=== PATIENT | male | born 1960 | race Caucasian/White ===

== ENCOUNTER → 2016-11-09 | Outpatient (REF) | payer OTHER ==
[2016-11-09 12:17] LABS: MEAN CORPUSCULAR HGB CONC 33.9 g/dl (32.0-36.5); MEAN CORPUSCULAR VOLUME 91.7 fl (80.0-96.0); RED CELL DISTRIBUTION WIDTH 13.3 % (11.5-14.5); WHITE BLOOD COUNT 7.5 K/mm3 (4.0-10.0)
[2016-11-09 12:54] LABS: ALBUMIN 3.7 GM/DL (3.2-5.2); ALBUMIN/GLOBULIN RATIO 1.37 (1.00-1.93); ALKALINE PHOSPHATASE 105 U/L (45-117); ALT/SGPT 96 U/L (12-78); ANION GAP 5 MEQ/L (8-16); AST/SGOT 51 U/L (15-37); BLOOD UREA NITROGEN 14 MG/DL (7-18); CALCIUM LEVEL 8.7 MG/DL (8.5-10.1); CARBON DIOXIDE LEVEL 30 MEQ/L (21-32); CHLORIDE LEVEL 107 MEQ/L (98-107); CHOLESTEROL LEVEL 207 MG/DL (<200); CREATININE FOR GFR 0.84 MG/DL (0.70-1.30); GLOMERULAR FILTRATION RATE > 60.0 (>56); GLUCOSE, FASTING 92 MG/DL (70-105); POTASSIUM SERUM 4.7 MEQ/L (3.5-5.1); SODIUM LEVEL 142 MEQ/L (136-145); TOTAL PROTEIN 6.4 GM/DL (6.4-8.2); TRIGLYCERIDES LEVEL 87 MG/DL (<150)
== END ==
LOC: M LABDRAW1 11:37
PROVIDERS: ATTEND Family Medicine
DX: I10 Essential (primary) hypertension (principal); R53.83 Other fatigue

== ENCOUNTER → 2018-05-14 | Outpatient (CLI) | payer MEDICARE, OTHER ==
--- NOTE | 2018-05-14 13:34 | REP ---
Clinical: Lower back pain. Technique: AP, lateral, bilateral oblique, and coned-down views of the lumbosacral spine. Findings: Alignment and lordosis maintained. Moderate multilevel degenerative changes include endplate sclerosis, marginal spurring, minimal disc space narrowing and hypertrophic facet changes. Findings are most pronounced at L4-5 and L5-S1. No acute fracture / compression injury or subluxation. Impression: Moderate multilevel degenerative changes. Electronically Signed by Oc Alberts MD 05/14/2018 01:25 P
== END ==
LOC: M WUC 13:09
PROVIDERS: ATTEND Physician Assistant
DX: M51.36 Other intervertebral disc degeneration, lumbar region (principal); M51.37 Other intervertebral disc degeneration, lumbosacral region

== ENCOUNTER → 2018-05-28 | Outpatient (CLI) | payer MEDICARE, OTHER ==
--- NOTE | 2018-05-28 14:42 | REP ---
Chest two views HISTORY: Bronchitis Comparison: 07/18/2012 The lungs are clear. The heart is normal in size. The pulmonary vasculature is normal in appearance. Degenerative change is present in the shoulders and thoracic spine. IMPRESSION: No acute disease. Electronically Signed by Cipriano Hanson MD 05/28/2018 02:34 P
== END ==
LOC: M WUC 14:10
PROVIDERS: ATTEND Physician Assistant
DX: J20.9 Acute bronchitis, unspecified (principal); Z72.0 Tobacco use

== ENCOUNTER → 2021-01-11 | Outpatient (CLI) | payer MEDICARE, BC, OTHER ==
--- NOTE | 2021-01-11 13:09 | REP ---
INDICATION: PSORIASIS VULGARIS. COMPARISON: PA and lateral chest, 05/28/2018. TECHNIQUE: Upright PA and lateral chest images were obtained. FINDINGS: There is stable linear scarring in the lingula. The lungs are otherwise clear. There is cardiomegaly and aortic ectasia consistent with benign essential hypertension. IMPRESSION: 1. Stable lingular scarring. 2. Findings consistent with hypertension. 3. No evidence of acute cardiopulmonary pathology. <Electronically signed by Gonzales Atkins > 01/11/21 [id number]
[2021-01-11 13:11] LABS: BASO # 0.1 10^3/uL (0.0-0.2); BASO % 1.2 % (0.0-1.0); EOS # 0.2 10^3/uL (0.0-0.5); EOS % 2.1 % (0.0-3.0); HEMOGLOBIN 16.8 g/dl (13.5-17.5); LYMPH # 1.4 10^3/uL (1.5-5.0); LYMPH % 16.7 % (24.0-44.0); MEAN CORPUSCULAR HGB CONC 34.3 g/dl (32.0-36.5); MEAN CORPUSCULAR VOLUME 96.3 fl (80.0-96.0); MONO # 0.8 10^3/uL (0.0-0.8); MONO % 10.4 % (2.0-8.0); NEUTROPHILS # 5.6 10^3/uL (1.5-8.5); NEUTROPHILS % 69.1 % (36.0-66.0); PLATELET COUNT, AUTOMATED 342 10^3/uL (150-450); RED BLOOD COUNT 5.09 10^6/uL (4.30-6.10); WHITE BLOOD COUNT 8.1 10^3/uL (4.0-10.0)
[2021-01-11 15:04] LABS: ALBUMIN 3.4 GM/DL (3.2-5.2); ALT/SGPT 34 U/L (12-78); BILIRUBIN,DIRECT 0.2 MG/DL (0.0-0.2); BILIRUBIN,TOTAL 0.8 MG/DL (0.2-1.0); BLOOD UREA NITROGEN 11 MG/DL (7-18); CALCIUM LEVEL 9.4 MG/DL (8.8-10.2); CARBON DIOXIDE LEVEL 27 MEQ/L (21-32); CHLORIDE LEVEL 107 MEQ/L (98-107); CREATININE FOR GFR 0.95 MG/DL (0.70-1.30); GLOMERULAR FILTRATION RATE > 60.0 (>49); GLUCOSE, FASTING 121 MG/DL (70-100); PHOSPHORUS LEVEL 3.1 MG/DL (2.5-4.9); POTASSIUM SERUM 4.4 MEQ/L (3.5-5.1); SODIUM LEVEL 139 MEQ/L (136-145); TOTAL PROTEIN 6.6 GM/DL (6.4-8.2)
[2021-01-11 15:14] LABS: HEPATITIS B SURFACE ANTIBODY NEGATIVE (POSITIVE)
[2021-01-11 15:53] LABS: HIV 1&2 SCREEN CENTAUR NEGATIVE (NEGATIVE)
== END ==
LOC: M PLAIMG 09:47 → M PLALAB 09:47
DX: L40.0 Psoriasis vulgaris (principal)

== ENCOUNTER 2021-11-09 06:13 | Emergency (ER) | payer MEDICARE, BC, OTHER ==
[~2021-11-09] VITALS: Ht 177.8 cm; Wt 100.0 kg
[2021-11-09] MEDS ORDERED: COMBIVENT RESPIMAT 100-20MCG INHALER 4GM INH STA (07:23)
[2021-11-09] MEDS ORDERED: methylPREDNISolone 125MG 2ML VIAL IM ONE (07:30)
[2021-11-09 07:34] VITALS: O2SAT 93
[2021-11-09] MEDS ORDERED: ALBU2.5V10 NEB (08:15)
[2021-11-09] MEDS ORDERED: PRED20TA PO (08:15)
[2021-11-09] MEDS ORDERED: PROAAER10 INH (08:15)
[2021-11-09 08:23] VITALS: BP 132/81
== END 2021-11-09 08:24 | disposition home or self-care (01) ==
LOC: M ED 06:13
DX: U07.1 COVID-19 (principal); R50.9 Fever, unspecified; J45.909 Unspecified asthma, uncomplicated; Z88.0 Allergy status to penicillin; F17.200 Nicotine dependence, unspecified, uncomplicated
CPT/HCPCS: 71046; 96372; 99284; J2930

== ENCOUNTER → 2022-01-13 | Outpatient (CLI) | payer MEDICARE, BC, OTHER ==
[~2022-01-13] MED LIST: ALBU2.5V10 NEB; PRED20TA PO; PROAAER10 INH
== END ==
LOC: M RAD 06:20
PROVIDERS: ATTEND Nurse Practitioner Family
DX: Z12.2 Encounter for screening for malignant neoplasm of respiratory organs (principal); Z87.891 Personal history of nicotine dependence; L40.0 Psoriasis vulgaris

== ENCOUNTER → 2022-01-13 | Outpatient (CLI) | payer MEDICARE, BC, OTHER ==
[2022-01-13 07:24] LABS: BASO # 0.1 10^3/uL (0.0-0.2); EOS # 0.2 10^3/uL (0.0-0.5); EOS % 2.4 % (0.0-3.0); HEMATOCRIT 45.1 % (42.0-52.0); LYMPH # 1.3 10^3/uL (1.5-5.0); LYMPH % 18.9 % (24.0-44.0); MEAN CORPUSCULAR HEMOGLOBIN 32.8 pg (27.0-33.0); MEAN CORPUSCULAR HGB CONC 33.3 g/dl (32.0-36.5); MEAN CORPUSCULAR VOLUME 98.5 fl (80.0-96.0); MONO # 1.3 10^3/uL (0.0-0.8); MONO % 19.6 % (2.0-8.0); NEUTROPHILS # 3.9 10^3/uL (1.5-8.5); NEUTROPHILS % 57.8 % (36.0-66.0); PLATELET COUNT, AUTOMATED 175 10^3/uL (150-450); RED BLOOD COUNT 4.58 10^6/uL (4.30-6.10); WHITE BLOOD COUNT 6.7 10^3/uL (4.0-10.0)
[2022-01-13 08:05] LABS: ALBUMIN 3.6 GM/DL (3.2-5.2); ALT/SGPT 45 U/L (12-78); BILIRUBIN,DIRECT 0.2 MG/DL (0.0-0.2); BILIRUBIN,TOTAL 0.7 MG/DL (0.2-1.0); BLOOD UREA NITROGEN 9 MG/DL (7-18); CALCIUM LEVEL 9.3 MG/DL (8.8-10.2); CARBON DIOXIDE LEVEL 31 MEQ/L (21-32); CHLORIDE LEVEL 101 MEQ/L (98-107); CREATININE FOR GFR 0.84 MG/DL (0.70-1.30); GLOMERULAR FILTRATION RATE > 60.0 (>49); GLUCOSE, FASTING 118 MG/DL (70-100); PHOSPHORUS LEVEL 2.8 MG/DL (2.5-4.9); POTASSIUM SERUM 3.7 MEQ/L (3.5-5.1); SODIUM LEVEL 136 MEQ/L (136-145); TOTAL PROTEIN 7.2 GM/DL (6.4-8.2)
[2022-01-13 08:46] LABS: HEPATITIS B SURFACE ANTIBODY NEGATIVE (POSITIVE)
[2022-01-13 09:28] LABS: HIV 1&2 SCREEN CENTAUR NEGATIVE (NEGATIVE)
== END ==
LOC: M LAB 06:26
PROVIDERS: ATTEND Nurse Practitioner Family
DX: L40.0 Psoriasis vulgaris (principal)

== ENCOUNTER 2023-06-12 13:33 | Emergency (ER) | payer MEDICARE, BC, OTHER ==
[~2023-06-12] VITALS: Ht 177.8 cm; Wt 104.2 kg
[2023-06-12 14:17] LABS: BASO # 0.1 10^3/uL (0.0-0.2); BASO % 1.8 % (0.0-1.0); EOS # 0.1 10^3/uL (0.0-0.5); EOS % 1.4 % (0.0-3.0); HEMATOCRIT 53.5 % (42.0-52.0); HEMOGLOBIN 18.6 g/dl (13.5-17.5); LYMPH % 35.1 % (24.0-44.0); MEAN CORPUSCULAR HEMOGLOBIN 32.8 pg (27.0-33.0); MEAN CORPUSCULAR HGB CONC 34.8 g/dl (32.0-36.5); MEAN CORPUSCULAR VOLUME 94.4 fl (80.0-96.0); MONO # 0.4 10^3/uL (0.0-0.8); MONO % 7.7 % (2.0-8.0); NEUTROPHILS % 53.6 % (36.0-66.0); PLATELET COUNT, AUTOMATED 212 10^3/uL (150-450); RED BLOOD COUNT 5.67 10^6/uL (4.30-6.10); WHITE BLOOD COUNT 5.6 10^3/uL (4.0-10.0)
[2023-06-12 14:39] LABS: ALBUMIN 3.8 G/DL (3.2-5.2); ALKALINE PHOSPHATASE 148 U/L (46-116); ALT/SGPT 72 U/L (7.0-40); AST/SGOT 158 U/L (<34); BILIRUBIN,DIRECT 0.3 MG/DL (<0.4); BILIRUBIN,TOTAL 0.7 MG/DL (0.3-1.2); BLOOD UREA NITROGEN 7 MG/DL (9-23); CALCIUM LEVEL 8.8 MG/DL (8.3-10.6); CARBON DIOXIDE LEVEL 23 MMOL/L (20-31); CHLORIDE LEVEL 105 MMOL/L (98-107); CREATININE FOR GFR 0.76 MG/DL (0.70-1.30); GLOMERULAR FILTRATION RATE > 60.0 (>49); GLUCOSE, FASTING 97 MG/DL (74-106); POTASSIUM SERUM 4.3 MMOL/L (3.5-5.1); SODIUM LEVEL 137 MMOL/L (136-145); TOTAL PROTEIN 7.1 G/DL (5.7-8.2)
[2023-06-12] MEDS ORDERED: ALBU2.5V10 NEB (15:26)
[2023-06-12 15:30] VITALS: BP 112/53
[2023-06-12 15:33] VITALS: O2SAT 91
[2023-06-12 15:40] VITALS: TEMP 96.1
== END 2023-06-12 15:35 | disposition home or self-care (01) ==
LOC: M ED 13:33 → EDBD 13:33 → M ED 15:35
DX: J44.1 Chronic obstructive pulmonary disease with (acute) exacerbation (principal); F10.10 Alcohol abuse, uncomplicated; Z79.52 Long term (current) use of systemic steroids; Z88.0 Allergy status to penicillin

== ENCOUNTER 2024-01-16 23:29 | Inpatient (IN) | payer MEDICARE, BC ==
[~2024-01-16] VITALS: Ht 172.7 cm; Wt 87.5 kg
[2024-01-17] VITALS (8 sets, daily range): BP systolic 115–132; BP diastolic 66–93; TEMP 97.3–97.9; O2SAT 93–98
[2024-01-17 00:36] LABS: VENOUS HCO3 21.3 MMOL/L (23.0-27.0); VENOUS O2 SATURATION 57.6 % (60.0-80.0); VENOUS PARTIAL PRESSURE CO2 32.9 mmHg (38.0-50.0); VENOUS PARTIAL PRESSURE O2 30.1 mmHg (30.0-50.0); VENOUS PH 7.429 UNITS (7.330-7.430); VENOUS STANDARD HCO3 21.8 MMOL/L; VENOUS TOTAL CO2 22.3 MMOL/L (24.0-28.0)
[2024-01-17 00:50] LABS: BASO # 0.1 10^3/uL (0.0-0.2); BASO % 0.6 % (0.0-1.0); EOS # 0.1 10^3/uL (0.0-0.5); EOS % 0.3 % (0.0-3.0); HEMATOCRIT 45.7 % (42.0-52.0); LYMPH # 1.4 10^3/uL (1.5-5.0); LYMPH % 9.5 % (24.0-44.0); MEAN CORPUSCULAR HEMOGLOBIN 33.5 pg (27.0-33.0); MEAN CORPUSCULAR VOLUME 95.6 fl (80.0-96.0); MONO % 6.7 % (2.0-8.0); NEUTROPHILS # 12.1 10^3/uL (1.5-8.5); NEUTROPHILS % 82.4 % (36.0-66.0); PLATELET COUNT, AUTOMATED 212 10^3/uL (150-450); RED BLOOD COUNT 4.78 10^6/uL (4.30-6.10); WHITE BLOOD COUNT 14.7 10^3/uL (4.0-10.0)
[2024-01-17 01:04] LABS: ETHYL ALCOHOL (ETHANOL) < 0.003 % (0.000-0.010)
[2024-01-17 01:05] LABS: CPK CREATINE PHOSPHOKINASE 17 U/L (46-171); SALICYLATE LEVEL < 3.0 MG/DL (<30)
[2024-01-17 01:06] LABS: ALBUMIN 3.1 G/DL (3.2-5.2); ALKALINE PHOSPHATASE 182 U/L (40-129); ALT/SGPT 40 U/L (7.0-40); AST/SGOT 45 U/L (<34); BILIRUBIN,DIRECT 0.8 MG/DL (<0.4); BLOOD UREA NITROGEN 39 MG/DL (9-23); CALCIUM LEVEL 9.9 MG/DL (8.3-10.6); CARBON DIOXIDE LEVEL 22 MMOL/L (20-31); CHLORIDE LEVEL 107 MMOL/L (98-107); CK-MB VALUE MASS < 1.0 NG/ML (<3.6); CREATININE FOR GFR 0.88 MG/DL (0.70-1.30); GLOMERULAR FILTRATION RATE > 60.0 (>49); GLUCOSE, FASTING 132 MG/DL (74-106); KETONE, URINE AUTO RFX 1+ mg/dL (NEGATIVE); LEUKOCYTE ESTERASE UR AUTO RFX NEGATIVE (NEGATIVE); MB/CK RELATIVE INDEX 5.88 (< OR =4); MUCUS, URINE RFX SMALL (NEGATIVE); NITRITE, URINE AUTO RFX NEGATIVE (NEGATIVE); POTASSIUM SERUM 4.1 MMOL/L (3.5-5.1); RBC, URINE AUTO RFX 0 /HPF (0-3); SODIUM LEVEL 142 MMOL/L (136-145); SQUAM EPITHELIAL CELL UR AURFX 0 /HPF (0-6); TOTAL PROTEIN 7.5 G/DL (5.7-8.2); WBC, URINE AUTO RFX 1 /HPF (0-3)
[2024-01-17 01:09] LABS: THYROID STIMULATING HORMONE 8.264 uIU/ML (0.55-4.78)
[2024-01-17 01:26] LABS: AMPHETAMINES LEVEL URINE NEGATIVE (NEGATIVE); BARBITURATES URINE NEGATIVE (NEGATIVE); BENZODIAZEPINES URINE NEGATIVE (NEGATIVE); COCAINE METABOLITE URINE NEGATIVE (NEGATIVE)
[2024-01-17 01:27] LABS: CANNABINOIDS URINE POSITIVE (NEGATIVE); METHADONE URINE NEGATIVE (NEGATIVE); OPIATES URINE NEGATIVE (NEGATIVE); PHENCYCLIDINE URINE NEGATIVE (NEGATIVE)
[2024-01-17] MEDS: NS (Normal Saline) 0.9% 1,000 ML IV ONE ×2 (01:52)
[2024-01-17 03:35] LABS: FREE T4 0.89 NG/DL (0.89-1.76)
[2024-01-17] MEDS ORDERED: VENTAER INH (04:08)
[2024-01-17] MEDS ORDERED: ALBU2.5V10 INH (04:08)
[2024-01-17] MEDS ORDERED: FAMO20TA PO (04:08)
[2024-01-17] MEDS ORDERED: PEPT262C2 PO (04:08)
[2024-01-17] MEDS ORDERED: HOME MED LIST COMPLETE! XX SCH (04:10)
[2024-01-17] MEDS ORDERED: ISOVUE-370 76% 100ML VIAL As Ordered ONE (04:24)
[2024-01-17] MEDS: THIAMINE 100 MG TAB PO SCH (05:02)
[2024-01-17] MEDS: CEFEPIME HCL 2 GM in DEXTROSE 5% (D5W) ADV/MINI-BAG 50 ML IV SCH (06:26)
[2024-01-17] MEDS: LACTULOSE 20GM/30ML SYRUP UDC PO SCH (06:26)
[2024-01-17 07:51] LABS: BASO # 0.1 10^3/uL (0.0-0.2); BASO % 0.7 % (0.0-1.0); EOS # 0.1 10^3/uL (0.0-0.5); EOS % 0.6 % (0.0-3.0); HEMATOCRIT 42.9 % (42.0-52.0); HEMOGLOBIN 14.1 g/dl (13.5-17.5); LYMPH # 1.2 10^3/uL (1.5-5.0); LYMPH % 11.1 % (24.0-44.0); MEAN CORPUSCULAR HGB CONC 32.9 g/dl (32.0-36.5); MEAN CORPUSCULAR VOLUME 103.4 fl (80.0-96.0); MONO # 0.8 10^3/uL (0.0-0.8); MONO % 7.7 % (2.0-8.0); NEUTROPHILS # 8.4 10^3/uL (1.5-8.5); NEUTROPHILS % 79.4 % (36.0-66.0); PLATELET COUNT, AUTOMATED 131 10^3/uL (150-450); RED BLOOD COUNT 4.15 10^6/uL (4.30-6.10); WHITE BLOOD COUNT 10.5 10^3/uL (4.0-10.0)
[2024-01-17] MEDS: metroNIDAZOLE 500 MG in IV 1 EA IV SCH (08:04)
[2024-01-17 08:09] LABS: INR 1.15; PARTIAL THROMBOPLASTIN TIME 30.8 SECONDS (24.8-34.2); PROTHROMBIN TIME 15.1 SECONDS (12.5-14.5)
[2024-01-17 08:18] LABS: ALBUMIN 2.6 G/DL (3.2-5.2); ALKALINE PHOSPHATASE 137 U/L (40-129); ALT/SGPT 34 U/L (7.0-40); AST/SGOT 38 U/L (<34); BILIRUBIN,DIRECT 0.6 MG/DL (<0.4); BILIRUBIN,TOTAL 1.4 MG/DL (0.3-1.2); BLOOD UREA NITROGEN 35 MG/DL (9-23); CALCIUM LEVEL 8.9 MG/DL (8.3-10.6); CARBON DIOXIDE LEVEL 20 MMOL/L (20-31); CHLORIDE LEVEL 113 MMOL/L (98-107); CREATININE FOR GFR 0.77 MG/DL (0.70-1.30); GLOMERULAR FILTRATION RATE > 60.0 (>49); GLUCOSE, FASTING 115 MG/DL (74-106); MAGNESIUM LEVEL 2.5 MG/DL (1.8-2.4); POTASSIUM SERUM 3.8 MMOL/L (3.5-5.1); SODIUM LEVEL 146 MMOL/L (136-145); TOTAL PROTEIN 6.1 G/DL (5.7-8.2)
[2024-01-17] MEDS ORDERED: HEPARIN SOD (PORCINE) 5000UNITS/ML 1ML VIAL/SYRINGE SC SCH (09:00)
[2024-01-17] MEDS ORDERED: ALBUTEROL 90 MCG/ACT 8GM HFA INHALER INH PRN (09:05)
[2024-01-17] MEDS ORDERED: FAMOTIDINE 20 MG TAB PO PRN (09:05)
[2024-01-17] MEDS: LORazepam 2 MG TAB PO PRN (09:54)
[2024-01-17] MEDS: FOLIC ACID 1MG TAB PO SCH (12:00)
[2024-01-17] MEDS: MULTIVITAMINS/MINERALS THERAP 1 TAB PO SCH (12:00)
[2024-01-17] MEDS: NICOTINE 21MG/24HR 1 EA TRANSDERMAL TD SCH (12:27)
[2024-01-17] MEDS: D5W/0.45% SODIUM CHLORIDE 1,000 ML IV SCH (12:36)
[2024-01-17 12:38] LABS: BLOOD UREA NITROGEN 34 MG/DL (9-23); CALCIUM LEVEL 8.8 MG/DL (8.3-10.6); CARBON DIOXIDE LEVEL 19 MMOL/L (20-31); CHLORIDE LEVEL 113 MMOL/L (98-107); CREATININE FOR GFR 0.73 MG/DL (0.70-1.30); GLOMERULAR FILTRATION RATE > 60.0 (>49); GLUCOSE, FASTING 109 MG/DL (74-106); POTASSIUM SERUM 3.8 MMOL/L (3.5-5.1); SODIUM LEVEL 143 MMOL/L (136-145)
[2024-01-17] MEDS: IPRATROPIUM 0.5MG/ALBUTEROL 2.5MG INH SOL UD 3ML (DUONEB) NEB SCH (13:07)
[2024-01-17] MEDS: THIAMINE INJection 500 MG in NS 100 ML IV SCH (13:11)
[2024-01-17 14:23] LABS: ACETONE/KETONE 2.16 MMOL/L (0.02-0.27)
[2024-01-17] MEDS ORDERED: ISOVUE-M 300 61% 15ML VIAL As Ordered ONE (14:56)
[2024-01-17 15:32] LABS: APPEARANCE, CSF CLEAR (CLEAR); COLOR, CSF COLORLESS (COLORLESS); CSF TUBE# CELL CNT TUBE 1
[2024-01-17 15:48] LABS: HEMOGLOBIN A1c 5.4 % (4.0-6.0)
[2024-01-17 17:12] LABS: THYROID PEROXIDASE ANTIBODY 39 U/ML (<60.0)
[2024-01-17 17:42] LABS: CSF TUBE# TP TUBE 2; TOTAL PROTEIN,CSF 97.4 MG/DL (15-45)
[2024-01-17 17:44] LABS: CSF TUBE# GLU TUBE 2
[2024-01-17 18:36] LABS: VITAMIN B12 LEVEL > 2000 PG/ML (211-911)
[2024-01-18] VITALS (9 sets, daily range): BP systolic 100–135; BP diastolic 70–94; TEMP 96.9–98; O2SAT 88–99
[2024-01-18] MEDS: ACETAMINOPHEN 325 MG TAB PO PRN (03:07)
[2024-01-18] MEDS: OXAZEPAM 10MG CAP PO ONE (04:23)
[2024-01-18 06:12] LABS: BASO # 0.1 10^3/uL (0.0-0.2); BASO % 0.8 % (0.0-1.0); EOS # 0.1 10^3/uL (0.0-0.5); HEMATOCRIT 31.2 % (42.0-52.0); LYMPH % 11.2 % (24.0-44.0); MEAN CORPUSCULAR HEMOGLOBIN 34.3 pg (27.0-33.0); MEAN CORPUSCULAR HGB CONC 35.3 g/dl (32.0-36.5); MEAN CORPUSCULAR VOLUME 97.2 fl (80.0-96.0); MONO # 0.8 10^3/uL (0.0-0.8); MONO % 8.5 % (2.0-8.0); NEUTROPHILS # 7.1 10^3/uL (1.5-8.5); NEUTROPHILS % 77.8 % (36.0-66.0); PLATELET COUNT, AUTOMATED 124 10^3/uL (150-450); RED BLOOD COUNT 3.21 10^6/uL (4.30-6.10); WHITE BLOOD COUNT 9.1 10^3/uL (4.0-10.0)
[2024-01-18 06:41] LABS: ALBUMIN 2.4 G/DL (3.2-5.2); ALKALINE PHOSPHATASE 112 U/L (40-129); ALT/SGPT 27 U/L (7.0-40); AST/SGOT 34 U/L (<34); BILIRUBIN,DIRECT 0.6 MG/DL (<0.4); BILIRUBIN,TOTAL 1.3 MG/DL (0.3-1.2); BLOOD UREA NITROGEN 26 MG/DL (9-23); CALCIUM LEVEL 8.8 MG/DL (8.3-10.6); CARBON DIOXIDE LEVEL 24 MMOL/L (20-31); CHLORIDE LEVEL 116 MMOL/L (98-107); CREATININE FOR GFR 0.77 MG/DL (0.70-1.30); GLOMERULAR FILTRATION RATE > 60.0 (>49); GLUCOSE, FASTING 144 MG/DL (74-106); MAGNESIUM LEVEL 2.3 MG/DL (1.8-2.4); SODIUM LEVEL 147 MMOL/L (136-145)
[2024-01-18 06:42] LABS: TOTAL PROTEIN 5.3 G/DL (5.7-8.2)
[2024-01-18] MEDS: POTASSIUM CHLORIDE 10MEQ SR TABLET PO ONE (08:06)
[2024-01-18] MEDS: KCL 10MEQ IN D5/0.45NS 1000ML 1,000 ML IV SCH (10:52)
[2024-01-18 13:13] LABS: BLOOD UREA NITROGEN 24 MG/DL (9-23); CALCIUM LEVEL 8.8 MG/DL (8.3-10.6); CARBON DIOXIDE LEVEL 19 MMOL/L (20-31); CHLORIDE LEVEL 116 MMOL/L (98-107); CREATININE FOR GFR 0.73 MG/DL (0.70-1.30); GLOMERULAR FILTRATION RATE > 60.0 (>49); GLUCOSE, FASTING 129 MG/DL (74-106); POTASSIUM SERUM 4.1 MMOL/L (3.5-5.1); SODIUM LEVEL 144 MMOL/L (136-145)
[2024-01-18] MEDS: OXAZEPAM 10MG CAP PO SCH (14:00)
[2024-01-18] MEDS ORDERED: OXAZEPAM 15MG CAP PO SCH (14:00)
[2024-01-18] MEDS: ONDANSETRON 4MG 2ML VIAL IV PRN (17:47)
[2024-01-19] VITALS (9 sets, daily range): BP systolic 103–135; BP diastolic 68–84; TEMP 96.6–97.8; O2SAT 94–99
[2024-01-19 06:03] LABS: BASO # 0.1 10^3/uL (0.0-0.2); BASO % 1.3 % (0.0-1.0); EOS # 0.2 10^3/uL (0.0-0.5); EOS % 2.4 % (0.0-3.0); HEMATOCRIT 35.9 % (42.0-52.0); HEMOGLOBIN 12.2 g/dl (13.5-17.5); LYMPH # 0.8 10^3/uL (1.5-5.0); LYMPH % 9.2 % (24.0-44.0); MEAN CORPUSCULAR HEMOGLOBIN 33.2 pg (27.0-33.0); MEAN CORPUSCULAR VOLUME 97.6 fl (80.0-96.0); MONO # 0.7 10^3/uL (0.0-0.8); MONO % 7.3 % (2.0-8.0); NEUTROPHILS # 7.1 10^3/uL (1.5-8.5); PLATELET COUNT, AUTOMATED 151 10^3/uL (150-450); RED BLOOD COUNT 3.68 10^6/uL (4.30-6.10); WHITE BLOOD COUNT 8.9 10^3/uL (4.0-10.0)
[2024-01-19 06:16] LABS: ALBUMIN 2.8 G/DL (3.2-5.2); ALKALINE PHOSPHATASE 142 U/L (40-129); ALT/SGPT 33 U/L (7.0-40); AST/SGOT 41 U/L (<34); BILIRUBIN,DIRECT 0.6 MG/DL (<0.4); BILIRUBIN,TOTAL 1.3 MG/DL (0.3-1.2); BLOOD UREA NITROGEN 16 MG/DL (9-23); CALCIUM LEVEL 9.1 MG/DL (8.3-10.6); CARBON DIOXIDE LEVEL 26 MMOL/L (20-31); CHLORIDE LEVEL 114 MMOL/L (98-107); CREATININE FOR GFR 0.68 MG/DL (0.70-1.30); GLOMERULAR FILTRATION RATE > 60.0 (>49); GLUCOSE, FASTING 104 MG/DL (74-106); MAGNESIUM LEVEL 2.4 MG/DL (1.8-2.4); POTASSIUM SERUM 3.1 MMOL/L (3.5-5.1); SODIUM LEVEL 148 MMOL/L (136-145); TOTAL PROTEIN 6.4 G/DL (5.7-8.2)
[2024-01-19] MEDS ORDERED: KCL 40MEQ IN D5/0.45NS 1000ML 1,000 ML IV SCH (07:15)
[2024-01-19] MEDS: POTASSIUM CHLORIDE 10MEQ SR TABLET PO STA ×2 (07:45→14:03)
[2024-01-19] MEDS: D5W/0.45% SODIUM CHLORIDE 1,000 ML IV SCH (07:47)
[2024-01-19] MEDS: POTASSIUM CHLORIDE 10MEQ SR TABLET PO ONE ×2 (07:47→18:15)
[2024-01-19] MEDS: THIAMINE 100 MG TAB PO SCH (11:21)
[2024-01-19] MEDS: oxyBUTYnin 5 MG TAB PO PRN (11:21)
[2024-01-19 12:53] LABS: BLOOD UREA NITROGEN 13 MG/DL (9-23); CALCIUM LEVEL 9.1 MG/DL (8.3-10.6); CARBON DIOXIDE LEVEL 23 MMOL/L (20-31); CHLORIDE LEVEL 115 MMOL/L (98-107); CREATININE FOR GFR 0.67 MG/DL (0.70-1.30); GLOMERULAR FILTRATION RATE > 60.0 (>49); GLUCOSE, FASTING 134 MG/DL (74-106); POTASSIUM SERUM 3.2 MMOL/L (3.5-5.1); SODIUM LEVEL 150 MMOL/L (136-145)
[2024-01-19] MEDS: PANTOPRAZOLE 40MG TAB (PROTONIX) PO SCH (14:02)
[2024-01-19] MEDS: ARIPiprazole 2 MG TAB PO SCH (14:03)
[2024-01-19] MEDS: D5W 1,000 ML IV SCH (14:03)
[2024-01-19] MEDS: HEPARIN SOD (PORCINE) 5000UNITS/ML 1ML VIAL/SYRINGE SQ SCH (14:04)
[2024-01-19 16:37] LABS: BLOOD UREA NITROGEN 13 MG/DL (9-23); CALCIUM LEVEL 8.7 MG/DL (8.3-10.6); CARBON DIOXIDE LEVEL 23 MMOL/L (20-31); CHLORIDE LEVEL 116 MMOL/L (98-107); CREATININE FOR GFR 0.66 MG/DL (0.70-1.30); GLOMERULAR FILTRATION RATE > 60.0 (>49); GLUCOSE, FASTING 169 MG/DL (74-106); POTASSIUM SERUM 3.5 MMOL/L (3.5-5.1); SODIUM LEVEL 148 MMOL/L (136-145)
[2024-01-19] MEDS: OXAZEPAM 10MG CAP PO SCH (20:04)
[2024-01-19 22:32] LABS: BLOOD UREA NITROGEN 11 MG/DL (9-23); CALCIUM LEVEL 8.4 MG/DL (8.3-10.6); CARBON DIOXIDE LEVEL 25 MMOL/L (20-31); CHLORIDE LEVEL 114 MMOL/L (98-107); CREATININE FOR GFR 0.72 MG/DL (0.70-1.30); GLOMERULAR FILTRATION RATE > 60.0 (>49); GLUCOSE, FASTING 154 MG/DL (74-106); POTASSIUM SERUM 3.6 MMOL/L (3.5-5.1); SODIUM LEVEL 145 MMOL/L (136-145)
[2024-01-20] VITALS (14 sets, daily range): BP systolic 95–136; BP diastolic 68–89; TEMP 96.7–98.6; O2SAT 92–100
[2024-01-20 04:58] LABS: BASO # 0.1 10^3/uL (0.0-0.2); BASO % 0.8 % (0.0-1.0); EOS # 0.2 10^3/uL (0.0-0.5); EOS % 2.4 % (0.0-3.0); HEMATOCRIT 31.3 % (42.0-52.0); LYMPH # 1.1 10^3/uL (1.5-5.0); LYMPH % 14.7 % (24.0-44.0); MEAN CORPUSCULAR HEMOGLOBIN 33.8 pg (27.0-33.0); MEAN CORPUSCULAR HGB CONC 35.1 g/dl (32.0-36.5); MEAN CORPUSCULAR VOLUME 96.3 fl (80.0-96.0); MONO # 0.6 10^3/uL (0.0-0.8); MONO % 8.1 % (2.0-8.0); NEUTROPHILS # 5.4 10^3/uL (1.5-8.5); NEUTROPHILS % 73.2 % (36.0-66.0); PLATELET COUNT, AUTOMATED 142 10^3/uL (150-450); RED BLOOD COUNT 3.25 10^6/uL (4.30-6.10); WHITE BLOOD COUNT 7.4 10^3/uL (4.0-10.0)
[2024-01-20 05:23] LABS: ALBUMIN 2.4 G/DL (3.2-5.2); ALKALINE PHOSPHATASE 116 U/L (40-129); ALT/SGPT 24 U/L (7.0-40); AST/SGOT 24 U/L (<34); BILIRUBIN,DIRECT 0.4 MG/DL (<0.4); BILIRUBIN,TOTAL 0.8 MG/DL (0.3-1.2); BLOOD UREA NITROGEN 9 MG/DL (9-23); CALCIUM LEVEL 9.1 MG/DL (8.3-10.6); CARBON DIOXIDE LEVEL 23 MMOL/L (20-31); CHLORIDE LEVEL 114 MMOL/L (98-107); CREATININE FOR GFR 0.62 MG/DL (0.70-1.30); GLOMERULAR FILTRATION RATE > 60.0 (>49); GLUCOSE, FASTING 140 MG/DL (74-106); MAGNESIUM LEVEL 2.1 MG/DL (1.8-2.4); POTASSIUM SERUM 3.3 MMOL/L (3.5-5.1); SODIUM LEVEL 145 MMOL/L (136-145); TOTAL PROTEIN 5.3 G/DL (5.7-8.2)
[2024-01-20] MEDS: POTASSIUM CHLORIDE 10% LIQ 20MEQ/15ML UDC PO ONE (07:33)
[2024-01-20 15:01] LABS: BLOOD UREA NITROGEN 8 MG/DL (9-23); CALCIUM LEVEL 8.4 MG/DL (8.3-10.6); CARBON DIOXIDE LEVEL 24 MMOL/L (20-31); CHLORIDE LEVEL 115 MMOL/L (98-107); CREATININE FOR GFR 0.63 MG/DL (0.70-1.30); GLOMERULAR FILTRATION RATE > 60.0 (>49); GLUCOSE, FASTING 138 MG/DL (74-106); SODIUM LEVEL 144 MMOL/L (136-145)
[2024-01-21 04:14] VITALS: BP 110/76; TEMP 98.1; O2SAT 95
[2024-01-21 06:40] LABS: BASO # 0.1 10^3/uL (0.0-0.2); BASO % 0.6 % (0.0-1.0); EOS # 0.2 10^3/uL (0.0-0.5); EOS % 2.4 % (0.0-3.0); HEMATOCRIT 30.6 % (42.0-52.0); HEMOGLOBIN 10.7 g/dl (13.5-17.5); LYMPH # 0.9 10^3/uL (1.5-5.0); LYMPH % 10.9 % (24.0-44.0); MEAN CORPUSCULAR HEMOGLOBIN 33.5 pg (27.0-33.0); MEAN CORPUSCULAR VOLUME 95.9 fl (80.0-96.0); MONO # 0.6 10^3/uL (0.0-0.8); MONO % 7.4 % (2.0-8.0); NEUTROPHILS # 6.3 10^3/uL (1.5-8.5); NEUTROPHILS % 77.8 % (36.0-66.0); PLATELET COUNT, AUTOMATED 139 10^3/uL (150-450); RED BLOOD COUNT 3.19 10^6/uL (4.30-6.10); WHITE BLOOD COUNT 8.1 10^3/uL (4.0-10.0)
[2024-01-21 07:17] LABS: ALBUMIN 2.2 G/DL (3.2-5.2); ALKALINE PHOSPHATASE 125 U/L (40-129); ALT/SGPT 21 U/L (7.0-40); AST/SGOT 20 U/L (<34); BILIRUBIN,DIRECT 0.4 MG/DL (<0.4); BILIRUBIN,TOTAL 0.8 MG/DL (0.3-1.2); BLOOD UREA NITROGEN 8 MG/DL (9-23); CALCIUM LEVEL 8.4 MG/DL (8.3-10.6); CARBON DIOXIDE LEVEL 22 MMOL/L (20-31); CHLORIDE LEVEL 109 MMOL/L (98-107); CREATININE FOR GFR 0.71 MG/DL (0.70-1.30); GLOMERULAR FILTRATION RATE > 60.0 (>49); GLUCOSE, FASTING 123 MG/DL (74-106); MAGNESIUM LEVEL 1.8 MG/DL (1.8-2.4); POTASSIUM SERUM 3.7 MMOL/L (3.5-5.1); SODIUM LEVEL 138 MMOL/L (136-145); TOTAL PROTEIN 5.1 G/DL (5.7-8.2)
[2024-01-21 08:00] VITALS: BP 133/90; TEMP 97.5; O2SAT 94
[2024-01-21 11:52] LABS: COPPER PLASMA 102 mcg/dL (70-175)
[2024-01-21 12:00] VITALS: BP 129/88; TEMP 97.9; O2SAT 93
[2024-01-21 16:00] VITALS: BP 106/73; TEMP 97.9; O2SAT 95
[2024-01-21 20:36] VITALS: BP 117/83; TEMP 98.2; O2SAT 96
[2024-01-21 23:31] VITALS: BP 125/90; TEMP 98.2; O2SAT 97
[2024-01-22 03:47] VITALS: BP 126/89; TEMP 97.9; O2SAT 97
[2024-01-22 06:06] LABS: BASO # 0.1 10^3/uL (0.0-0.2); BASO % 0.6 % (0.0-1.0); EOS # 0.2 10^3/uL (0.0-0.5); EOS % 1.8 % (0.0-3.0); HEMATOCRIT 31.6 % (42.0-52.0); HEMOGLOBIN 11.1 g/dl (13.5-17.5); LYMPH # 0.8 10^3/uL (1.5-5.0); LYMPH % 9.8 % (24.0-44.0); MEAN CORPUSCULAR HGB CONC 35.1 g/dl (32.0-36.5); MONO # 0.7 10^3/uL (0.0-0.8); MONO % 8.4 % (2.0-8.0); NEUTROPHILS # 6.5 10^3/uL (1.5-8.5); NEUTROPHILS % 78.7 % (36.0-66.0); PLATELET COUNT, AUTOMATED 154 10^3/uL (150-450); RED BLOOD COUNT 3.36 10^6/uL (4.30-6.10); WHITE BLOOD COUNT 8.3 10^3/uL (4.0-10.0)
[2024-01-22 06:28] LABS: BLOOD UREA NITROGEN 7 MG/DL (9-23); CALCIUM LEVEL 8.1 MG/DL (8.3-10.6); CARBON DIOXIDE LEVEL 23 MMOL/L (20-31); CHLORIDE LEVEL 108 MMOL/L (98-107); CREATININE FOR GFR 0.66 MG/DL (0.70-1.30); GLOMERULAR FILTRATION RATE > 60.0 (>49); GLUCOSE, FASTING 121 MG/DL (74-106); MAGNESIUM LEVEL 1.7 MG/DL (1.8-2.4); POTASSIUM SERUM 3.4 MMOL/L (3.5-5.1); SODIUM LEVEL 140 MMOL/L (136-145)
[2024-01-22] MEDS: POTASSIUM CHLORIDE 10MEQ SR TABLET PO STA (07:42)
[2024-01-22 08:00] VITALS: BP 126/91; TEMP 97.9; O2SAT 94
[2024-01-22] MEDS: MAG SULF 1GM/100ML (MAG RUN) 1 GM in IV 1 EA IV SCH (08:54)
[2024-01-22 12:00] VITALS: BP 125/89; TEMP 98.2; O2SAT 97
[2024-01-22] MEDS: TIOTROPIUM INHALER/CAPSULE (SPIRIVA) INH SCH (14:07)
[2024-01-22 16:00] VITALS: BP 125/87; TEMP 98.1; O2SAT 96
[2024-01-22] MEDS: POTASSIUM CHLORIDE 10MEQ SR TABLET PO ONE (19:36)
[2024-01-22] MEDS: oxyBUTYnin 5 MG TAB PO SCH (20:54)
[2024-01-22] MEDS: OLANZapine INTRAMUSCULAR 10MG VIAL IM PRN (20:55)
[2024-01-23] MEDS: OLANZapine INTRAMUSCULAR 10MG VIAL IM PRN (00:20)
[2024-01-23] MEDS: OXAZEPAM 10MG CAP PO SCH (00:23)
[2024-01-23 04:00] VITALS: BP 103/68; TEMP 97.9; O2SAT 93
[2024-01-23] MEDS ORDERED: OLANZapine INTRAMUSCULAR 10MG VIAL IM PRN (05:50)
[2024-01-23] MEDS ORDERED: LORazepam 2 MG TAB PO PRN (05:55)
[2024-01-23 06:04] VITALS: BP 103/68
[2024-01-23] MEDS: LORazepam 2 MG/ML 1ML VIAL IV PRN (06:21)
[2024-01-23 06:46] LABS: BLOOD UREA NITROGEN 6 MG/DL (9-23); CALCIUM LEVEL 8.7 MG/DL (8.3-10.6); CARBON DIOXIDE LEVEL 26 MMOL/L (20-31); CHLORIDE LEVEL 110 MMOL/L (98-107); CREATININE FOR GFR 0.63 MG/DL (0.70-1.30); GLOMERULAR FILTRATION RATE > 60.0 (>49); GLUCOSE, FASTING 92 MG/DL (74-106); MAGNESIUM LEVEL 2.1 MG/DL (1.8-2.4); SODIUM LEVEL 142 MMOL/L (136-145)
[2024-01-23] MEDS: RAMELTEON 8 MG TAB (ROZEREM) PO PRN (20:16)
[2024-01-24] MEDS: HALOPERIDOL LACTATE 5MG/ML VIAL IV PRN (01:59)
[2024-01-24 05:43] VITALS: BP 120/73; TEMP 97.5; O2SAT 96
[2024-01-24 06:32] LABS: BLOOD UREA NITROGEN 9 MG/DL (9-23); CALCIUM LEVEL 8.5 MG/DL (8.3-10.6); CARBON DIOXIDE LEVEL 25 MMOL/L (20-31); CHLORIDE LEVEL 111 MMOL/L (98-107); CREATININE FOR GFR 0.63 MG/DL (0.70-1.30); GLOMERULAR FILTRATION RATE > 60.0 (>49); GLUCOSE, FASTING 85 MG/DL (74-106); MAGNESIUM LEVEL 2.1 MG/DL (1.8-2.4); POTASSIUM SERUM 4.4 MMOL/L (3.5-5.1); SODIUM LEVEL 143 MMOL/L (136-145)
[2024-01-24 19:49] VITALS: BP 109/69; TEMP 97.7; O2SAT 95
[2024-01-25 03:56] VITALS: BP 110/71; TEMP 98.1; O2SAT 95
[2024-01-25] MEDS: QUEtiapine FUMARATE 25 MG TAB PO PRN (07:41)
[2024-01-26 04:00] VITALS: BP 109/73; TEMP 98.4; O2SAT 96
[2024-01-26] MEDS: OLANZapine 2.5MG TABLET PO PRN (12:38)
[2024-01-26] MEDS: hydrOXYzine 50 MG TAB PO ONE (16:24)
[2024-01-27 01:17] LABS: KETONE, URINE AUTO RFX NEGATIVE (NEGATIVE); MUCUS, URINE RFX SMALL (NEGATIVE); NITRITE, URINE AUTO RFX NEGATIVE (NEGATIVE); RBC, URINE AUTO RFX 22 /HPF (0-3); SQUAM EPITHELIAL CELL UR AURFX 0 /HPF (0-6); YEAST LIKE CELL URINE AUTO RFX SMALL
[2024-01-27 01:24] LABS: LEUKOCYTE ESTERASE UR AUTO RFX 3+ (NEGATIVE); WBC, URINE AUTO RFX 44 /HPF (0-3)
[2024-01-27 04:00] VITALS: BP 112/75; TEMP 97.7; O2SAT 96
[2024-01-27] MEDS: BACTRIM 160MG/800MG DS TAB PO SCH (09:49)
[2024-01-27] MEDS: RIVAROXABAN 10MG TAB (XARELTO) PO SCH (17:18)
[2024-01-28 04:00] VITALS: BP 114/77; TEMP 97.9; O2SAT 96
[2024-01-28] MEDS: NYSTATIN 100,000 UNITS/GM TOPICAL PWD 15GM TOP PRN (08:11)
[2024-01-28] MEDS: PANTOPRAZOLE 40MG TAB (PROTONIX) PO SCH (08:11)
[2024-01-29 04:11] VITALS: BP 113/71; TEMP 97; O2SAT 99
[2024-01-29] MEDS: FLUCONAZOLE 100 MG TAB PO SCH (09:39)
[2024-01-29] MEDS: FLUCONAZOLE 40MG/ML ORAL SUSP 35ML **DRAW UP EXACT DOSE PO SCH (13:12)
[2024-01-29 16:44] LABS: VITAMIN B1 LEVEL WHOLE BLOOD > 1200 nmol/L (78-185)
[2024-01-30 04:19] VITALS: BP 114/79; TEMP 97.9; O2SAT 99
[2024-01-30] MEDS: OLANZapine INTRAMUSCULAR 10MG VIAL IM ONE (07:51)
[2024-01-30 08:06] LABS: HEMATOCRIT 37.8 % (42.0-52.0); HEMOGLOBIN 13.2 g/dl (13.5-17.5); MEAN CORPUSCULAR HEMOGLOBIN 33.2 pg (27.0-33.0); MEAN CORPUSCULAR HGB CONC 34.9 g/dl (32.0-36.5); MEAN CORPUSCULAR VOLUME 95.2 fl (80.0-96.0); PLATELET COUNT, AUTOMATED 330 10^3/uL (150-450); RED BLOOD COUNT 3.97 10^6/uL (4.30-6.10); WHITE BLOOD COUNT 7.8 10^3/uL (4.0-10.0)
[2024-01-30 08:33] LABS: BLOOD UREA NITROGEN 7 MG/DL (9-23); CALCIUM LEVEL 8.7 MG/DL (8.3-10.6); CARBON DIOXIDE LEVEL 25 MMOL/L (20-31); CHLORIDE LEVEL 108 MMOL/L (98-107); CREATININE FOR GFR 0.66 MG/DL (0.70-1.30); GLOMERULAR FILTRATION RATE > 60.0 (>49); GLUCOSE, FASTING 125 MG/DL (74-106); POTASSIUM SERUM 3.9 MMOL/L (3.5-5.1); SODIUM LEVEL 139 MMOL/L (136-145)
[2024-01-30 10:05] LABS: KETONE, URINE AUTO RFX NEGATIVE (NEGATIVE); MUCUS, URINE RFX SMALL (NEGATIVE); NITRITE, URINE AUTO RFX NEGATIVE (NEGATIVE); RBC, URINE AUTO RFX TNTC /HPF (0-3); SQUAM EPITHELIAL CELL UR AURFX 0 /HPF (0-6); URIC ACID CRYSTALS RFX MODERATE; YEAST LIKE CELL URINE AUTO RFX MODERATE
[2024-01-30 10:06] LABS: LEUKOCYTE ESTERASE UR AUTO RFX 3+ (NEGATIVE); WBC, URINE AUTO RFX 139 /HPF (0-3)
[2024-01-31 03:55] VITALS: BP 107/66; TEMP 97.9; O2SAT 93
[2024-02-01 03:52] VITALS: BP 134/89; TEMP 97.5; O2SAT 98
[2024-02-01 19:36] VITALS: BP 136/96; TEMP 97.7
[2024-02-02 04:00] VITALS: BP 168/101; TEMP 97.7; O2SAT 98
[2024-02-02 18:11] VITALS: BP 125/78
[2024-02-02] MEDS: OLANZapine 2.5MG TABLET PO SCH (19:56)
[2024-02-02] MEDS: TAMSULOSIN 0.4 MG CAP PO SCH (19:58)
[2024-02-03 04:00] VITALS: BP 121/76; TEMP 97.9; O2SAT 92
[2024-02-03] MEDS: FLUCONAZOLE 100 MG TAB PO SCH (08:18)
[2024-02-04 03:25] VITALS: BP 118/75; TEMP 97.7; O2SAT 95
[2024-02-04] MEDS: OLANZapine ORAL DISINTEGRATING TAB 5MG PO PRN (03:28)
[2024-02-04] MEDS: CLOTRIMAZOLE 1% TOPICAL CREAM 30GM TOP SCH (05:36)
[2024-02-05] MEDS: HALOPERIDOL LACTATE 5MG/ML VIAL IM ONE (01:02)
[2024-02-05 04:40] VITALS: BP 117/81; TEMP 97.9; O2SAT 92
[2024-02-05] MEDS: FINASTERIDE 5MG TAB PO SCH (08:42)
[2024-02-06 04:26] VITALS: BP 136/88; TEMP 97.5; O2SAT 96
[2024-02-07 04:02] VITALS: BP 119/71; TEMP 98.1; O2SAT 92
[2024-02-08 04:13] VITALS: BP 142/86; TEMP 98.1; O2SAT 93
[2024-02-08] MEDS: MAALOX 30 ML SUSP *UDC PO PRN (14:40)
[2024-02-09 06:23] VITALS: BP 107/70; TEMP 97.7; O2SAT 97
[2024-02-10 04:12] VITALS: BP 131/93; TEMP 97.9; O2SAT 93
[2024-02-11 03:54] VITALS: BP 110/73; TEMP 97.9; O2SAT 92
[2024-02-12 03:53] VITALS: BP 110/74; TEMP 98.1; O2SAT 95
[2024-02-13 04:35] VITALS: BP 115/75; TEMP 97.5; O2SAT 95
[2024-02-14 04:42] VITALS: BP 132/92; TEMP 97.7; O2SAT 94
[2024-02-15 04:01] VITALS: BP 132/91; TEMP 98.6; O2SAT 95
[2024-02-16 04:00] VITALS: BP 101/66; TEMP 98.1; O2SAT 97
[2024-02-17 04:00] VITALS: BP 142/85; TEMP 97.9; O2SAT 96
[2024-02-17] MEDS: diphenhydrAMINE 25MG CAP PO PRN (16:46)
[2024-02-17] MEDS: HYDROCORTISONE 1% CREAM 30GM TOP SCH (16:47)
[2024-02-18 03:50] VITALS: BP 96/64; TEMP 97.7; O2SAT 95
[2024-02-20 04:25] VITALS: BP 116/82; TEMP 98.4; O2SAT 96
[2024-02-21 04:01] VITALS: BP 119/81; TEMP 97.5; O2SAT 95
[2024-02-22 04:00] VITALS: BP 121/78; TEMP 97.9
[2024-02-23 04:00] VITALS: BP 112/76; TEMP 97.3; O2SAT 96
[2024-02-24 04:00] VITALS: BP 105/60; TEMP 97.5; O2SAT 96
[2024-02-24] MEDS: VANICREAM MOISTURIZING SKIN CREAM 113GM TUBE TOP SCH (13:20)
[2024-02-25 04:00] VITALS: BP 110/63; TEMP 97.9; O2SAT 96
[2024-02-26 01:44] VITALS: BP 124/79; TEMP 97.7; O2SAT 93
[2024-02-26 02:14] LABS: VENOUS BASE EXCESS 0.6 (-2.0-2.0); VENOUS HCO3 23.6 MMOL/L (23.0-27.0); VENOUS O2 SATURATION 95.9 % (60.0-80.0); VENOUS PARTIAL PRESSURE CO2 32.9 mmHg (38.0-50.0); VENOUS PARTIAL PRESSURE O2 80.8 mmHg (30.0-50.0); VENOUS PH 7.474 UNITS (7.330-7.430); VENOUS TOTAL CO2 24.6 MMOL/L (24.0-28.0)
[2024-02-26 02:28] LABS: BASO # 0.1 10^3/uL (0.0-0.2); BASO % 0.9 % (0.0-1.0); EOS # 0.3 10^3/uL (0.0-0.5); HEMOGLOBIN 11.9 g/dl (13.5-17.5); LYMPH % 28.7 % (24.0-44.0); MEAN CORPUSCULAR HEMOGLOBIN 32.2 pg (27.0-33.0); MEAN CORPUSCULAR VOLUME 94.6 fl (80.0-96.0); MONO # 0.8 10^3/uL (0.0-0.8); MONO % 11.1 % (2.0-8.0); NEUTROPHILS # 3.7 10^3/uL (1.5-8.5); NEUTROPHILS % 54.7 % (36.0-66.0); PLATELET COUNT, AUTOMATED 214 10^3/uL (150-450); WHITE BLOOD COUNT 6.8 10^3/uL (4.0-10.0)
[2024-02-26 02:49] LABS: ALBUMIN 2.5 G/DL (3.2-5.2); ALKALINE PHOSPHATASE 111 U/L (40-129); ALT/SGPT 13 U/L (7.0-40); AST/SGOT 20 U/L (<34); BILIRUBIN,TOTAL 0.6 MG/DL (0.3-1.2); BLOOD UREA NITROGEN 13 MG/DL (9-23); CALCIUM LEVEL 9.3 MG/DL (8.3-10.6); CARBON DIOXIDE LEVEL 26 MMOL/L (20-31); CHLORIDE LEVEL 107 MMOL/L (98-107); CK-MB VALUE MASS < 1.0 NG/ML (<3.6); CREATININE FOR GFR 0.65 MG/DL (0.70-1.30); GLOMERULAR FILTRATION RATE > 60.0 (>49); GLUCOSE, FASTING 103 MG/DL (74-106); MAGNESIUM LEVEL 1.8 MG/DL (1.8-2.4); POTASSIUM SERUM 3.9 MMOL/L (3.5-5.1); SODIUM LEVEL 140 MMOL/L (136-145); TOTAL PROTEIN 5.9 G/DL (5.7-8.2)
[2024-02-26 02:51] LABS: THYROID STIMULATING HORMONE 7.634 uIU/ML (0.55-4.78)
[2024-02-26 02:54] LABS: CPK CREATINE PHOSPHOKINASE < 15 U/L (46-171)
[2024-02-26 04:11] VITALS: BP 123/79; TEMP 96.8; O2SAT 92
[2024-02-27 04:13] VITALS: BP 102/64; TEMP 97.7; O2SAT 94
[2024-02-28 04:14] VITALS: BP 137/75; TEMP 97.9; O2SAT 97
[2024-02-29 04:00] VITALS: BP 129/75; TEMP 98.1; O2SAT 96
[2024-02-29] MEDS: MOM 30ML SUSPENSION UDC PO PRN (22:51)
[2024-03-01 04:00] VITALS: BP 127/75; TEMP 97.9; O2SAT 96
[2024-03-02 04:00] VITALS: BP 104/58; TEMP 97.7; O2SAT 96
[2024-03-03 03:55] VITALS: BP 111/71; TEMP 97.9; O2SAT 98
[2024-03-03] MEDS ORDERED: TRIAMCINOLONE ACET 0.1% CREAM 80GM TOP SCH (09:00)
[2024-03-03] MEDS ORDERED: TRIAMCINOLONE ACET 0.1% CREAM 15GM TOP SCH (11:35)
[2024-03-03] MEDS: TRIAMCINOLONE ACET 0.1% CREAM 15GM TOP SCH (12:02)
[2024-03-04 06:27] VITALS: BP 108/69; TEMP 97.7; O2SAT 96
[2024-03-05 04:59] VITALS: BP 131/81; TEMP 97; O2SAT 97
[2024-03-06 04:44] VITALS: BP 130/68; TEMP 97.5; O2SAT 96
[2024-03-07 04:00] VITALS: BP 136/57; TEMP 97.9; O2SAT 94
[2024-03-08 04:00] VITALS: BP 116/68; TEMP 98.1; O2SAT 92
[2024-03-09 04:00] VITALS: BP 130/58; TEMP 97.7; O2SAT 74
[2024-03-10 04:00] VITALS: TEMP 97.3; O2SAT 97
[2024-03-11 04:00] VITALS: BP 93/65; TEMP 98.2; O2SAT 91
[2024-03-11 05:08] VITALS: BP 104/72
[2024-03-12 04:07] VITALS: BP 120/79; TEMP 97.7; O2SAT 95
[2024-03-13 03:56] VITALS: BP 106/69; TEMP 98.1; O2SAT 94
[2024-03-14 04:10] VITALS: BP 106/68; TEMP 97.9; O2SAT 94
[2024-03-16 03:57] VITALS: BP 107/71; TEMP 97.7; O2SAT 96
[2024-03-17 03:56] VITALS: BP 106/70; TEMP 98.1; O2SAT 96
[2024-03-19 04:05] VITALS: BP 98/49; TEMP 97.9; O2SAT 90
[2024-03-20 05:03] VITALS: BP 105/72; TEMP 97.7; O2SAT 94
[2024-03-22 06:44] VITALS: BP 94/59; TEMP 97.7
[2024-03-22] MEDS: TRIAMCINOLONE ACET 0.1% CREAM 80GM TOP SCH (21:00)
[2024-03-23] MEDS: CETIRIZINE (ZyrTEC) 10 MG TAB PO SCH (00:28)
[2024-03-23 04:00] VITALS: BP 109/61; TEMP 97.5; O2SAT 96
[2024-03-23 11:47] VITALS: BP 107/62; TEMP 97.3; O2SAT 97
[2024-03-24 06:00] VITALS: BP 99/63; TEMP 97.9; O2SAT 94
[2024-03-25 03:30] VITALS: BP 107/67; TEMP 97.7; O2SAT 97
[2024-03-25] MEDS: SENOKOT S TAB PO SCH (08:31)
[2024-03-26 04:33] VITALS: BP 110/71; TEMP 97.5; O2SAT 94
[2024-03-26 12:00] VITALS: BP 105/69; TEMP 97.7; O2SAT 92
[2024-03-27 06:27] VITALS: BP 122/79; TEMP 97.7; O2SAT 95
[2024-03-28 03:29] VITALS: BP 123/76; TEMP 97.7; O2SAT 93
[2024-03-29 04:00] VITALS: BP 109/72; TEMP 97.4; O2SAT 94
[2024-03-30 04:00] VITALS: BP 107/62; TEMP 97.9; O2SAT 96
[2024-03-31 04:07] VITALS: BP 106/54; TEMP 97.9; O2SAT 96
[2024-04-01 05:44] VITALS: BP 99/63; TEMP 97.9; O2SAT 95
[2024-04-02 04:00] VITALS: BP 101/63; TEMP 97.9; O2SAT 93
[2024-04-04 04:50] VITALS: BP 103/70; TEMP 97.7; O2SAT 96
[2024-04-05 04:00] VITALS: BP 116/73; TEMP 97.9; O2SAT 94
[2024-04-06 04:31] VITALS: BP 122/84; TEMP 97.9; O2SAT 94
[2024-04-07 04:00] VITALS: BP 113/80; TEMP 97.1; O2SAT 96
[2024-04-07] MEDS: ONDANSETRON 4MG TAB PO PRN (16:13)
[2024-04-08 06:04] VITALS: BP 105/66; TEMP 98.6; O2SAT 96
[2024-04-09 04:50] VITALS: BP 104/66; TEMP 97.7; O2SAT 96
[2024-04-10 04:00] VITALS: BP 101/64; TEMP 97.7; O2SAT 97
[2024-04-11 05:08] VITALS: BP 101/62; TEMP 97.9; O2SAT 96
[2024-04-11] MEDS: IPRATROPIUM 0.5MG/ALBUTEROL 2.5MG INH SOL UD 3ML (DUONEB) NEB PRN (14:01)
[2024-04-12 04:31] VITALS: BP 106/62; TEMP 97.9; O2SAT 95
[2024-04-13 04:22] VITALS: BP 115/77; TEMP 98.1; O2SAT 97
[2024-04-14 04:00] VITALS: BP 111/74; TEMP 97.7; O2SAT 93
[2024-04-15 04:39] VITALS: BP 108/80; TEMP 98.1; O2SAT 93
[2024-04-16 11:45] VITALS: BP 88/52; TEMP 97.7; O2SAT 93
[2024-04-16 11:58] VITALS: BP 100/50
[2024-04-16] MEDS ORDERED: TRIAMCINOLONE ACET 0.1% CREAM 80GM TOP PRN (12:45)
[2024-04-17 05:36] VITALS: BP 96/58; TEMP 97.7; O2SAT 96
[2024-04-17] MEDS: HYDROCORTISONE 1% CREAM 30GM TOP PRN (08:54)
[2024-04-18 04:00] VITALS: BP 130/75; TEMP 97.9; O2SAT 96
[2024-04-19 04:00] VITALS: BP 120/67; TEMP 97.9; O2SAT 97
[2024-04-20 04:57] VITALS: BP 109/55; TEMP 97.7; O2SAT 96
[2024-04-21 04:48] VITALS: BP 122/64; TEMP 97.8; O2SAT 96
[2024-04-22 05:38] VITALS: BP 102/59; TEMP 97.7; O2SAT 94
[2024-04-22] MEDS ORDERED: OLAN5ZYD PO (09:07)
[2024-04-22] MEDS ORDERED: FLOM0.4C39 PO (09:07)
[2024-04-22] MEDS ORDERED: FINA5TAB2 PO (09:07)
== END 2024-04-22 13:15 | DRG 897 ==
LOC: M ED 23:29 → M ED INP 01-17 07:17 → M MS5PR 01-17 08:53 → M ICU 01-18 12:38 → M MS5PR 01-20 17:49
PROVIDERS: ADMIT Student in an Organized Health Care Education/Training Program; ATTEND Student in an Organized Health Care Education/Training Program
PROC: 009U3ZX Drainage of Spinal Canal, Percutaneous Approach, Diagnostic (ICD-10-PCS; principal; 2024-01-17 13:00)
DX: F10.26 Alcohol dependence with alcohol-induced persisting amnestic disorder (principal); E87.20 Acidosis, unspecified; E87.0 Hyperosmolality and hypernatremia; R47.01 Aphasia; N39.0 Urinary tract infection, site not specified; F10.231 Alcohol dependence with withdrawal delirium; E80.6 Other disorders of bilirubin metabolism; R74.01 Elevation of levels of liver transaminase levels; R07.89 Other chest pain; I10 Essential (primary) hypertension; L40.9 Psoriasis, unspecified; R73.03 Prediabetes; K21.9 Gastro-esophageal reflux disease without esophagitis; K76.0 Fatty (change of) liver, not elsewhere classified; R45.1 Restlessness and agitation; K44.9 Diaphragmatic hernia without obstruction or gangrene; E87.6 Hypokalemia; D64.9 Anemia, unspecified; J45.909 Unspecified asthma, uncomplicated; E88.89 Other specified metabolic disorders; K70.0 Alcoholic fatty liver; E86.0 Dehydration; R33.9 Retention of urine, unspecified; E02 Subclinical iodine-deficiency hypothyroidism; E83.42 Hypomagnesemia; F17.210 Nicotine dependence, cigarettes, uncomplicated; B35.6 Tinea cruris; L30.1 Dyshidrosis [pompholyx]; Z71.6 Tobacco abuse counseling; Z88.0 Allergy status to penicillin; Z79.899 Other long term (current) drug therapy

== ENCOUNTER → 2024-12-24 | Outpatient (REF) | payer MEDICARE, BC, MEDICAID ==
[~2024-12-24] MED LIST changes: +ALBU2.5V10 INH; +FAMO20TA PO; +FINA5TAB2 PO; +OLAN5ZYD PO; +PEPT262C2 PO; +TAMS-18 PO; +VENTAER INH
== END ==
LOC: SKLAB2 09:57
PROVIDERS: ATTEND Family Medicine
DX: J90 Pleural effusion, not elsewhere classified (principal); R76.11 Nonspecific reaction to tuberculin skin test without active tuberculosis

== ENCOUNTER → 2024-12-25 | Outpatient (CLI) | payer MEDICARE, BC, MEDICAID | LOC: M RAD 11:41 | PROVIDERS: ATTEND Nurse Practitioner Adult Health | DX: R07.9 Chest pain, unspecified (principal) ==

== ENCOUNTER → 2025-01-09 | Outpatient (REF) | payer MEDICARE, BC, MEDICAID | LOC: SKLAB2 16:00 | PROVIDERS: ATTEND Family Medicine | DX: R06.02 Shortness of breath (principal) ==

== ENCOUNTER → 2025-01-27 | Outpatient (REF) | payer MEDICARE, BC, MEDICAID ==
[2025-01-27 06:56] LABS: PLATELET COUNT, AUTOMATED 180 10^3/uL (150-450)
[2025-01-27 07:11] LABS: ESTIMATED AVERAGE GLUCOSE 123.0 MG/DL (60-110)
[2025-01-27 07:30] LABS: ALT/SGPT 13 U/L (7.0-40); AST/SGOT 15 U/L (<34); CALCIUM LEVEL 9.0 MG/DL (8.3-10.6); CARBON DIOXIDE LEVEL 27 MMOL/L (20-31); CHLORIDE LEVEL 104 MMOL/L (98-107); CHOLESTEROL LEVEL 189 MG/DL (<200); CHOLESTEROL RISK RATIO 3.48 (<5); CREATININE FOR GFR 0.82 MG/DL (0.70-1.30); GLOMERULAR FILTRATION RATE > 90.0 (>49); LDL CHOLESTEROL 120.6 MG/DL (<100); NON-HDL-C 134.8 MG/DL; POTASSIUM SERUM 4.5 MMOL/L (3.5-5.1); PSA SCREENING 0.19 NG/ML (< 4.00); SODIUM LEVEL 141 MMOL/L (136-145); TRIGLYCERIDES LEVEL 71 MG/DL (<150)
== END ==
LOC: SKLAB2 07:00
PROVIDERS: ATTEND Family Medicine
DX: N18.9 Chronic kidney disease, unspecified (principal); D63.1 Anemia in chronic kidney disease; N40.0 Benign prostatic hyperplasia without lower urinary tract symptoms; Z79.899 Other long term (current) drug therapy; Z12.5 Encounter for screening for malignant neoplasm of prostate
CPT/HCPCS: 36415; 80053; 80061; 83036; 84443; 85027; G0103

== ENCOUNTER 2025-03-17 15:42 | Emergency (ER) | payer MEDICARE, BC, MEDICAID ==
[~2025-03-17] VITALS: Ht 172.7 cm; Wt 136.6 kg
[~2025-03-17 15:42] MED LIST changes: +FINA-37 PO; -FINA5TAB2 PO
[2025-03-17 15:54] VITALS: TEMP 98.8
[2025-03-17] MEDS ORDERED: ACET-683 PO (18:02)
[2025-03-17] MEDS ORDERED: SYMB16INH INH (18:02)
[2025-03-17] MEDS ORDERED: MEMA1TAB3 PO (18:02)
[2025-03-17] MEDS ORDERED: SENN-188 PO (18:02)
[2025-03-17] MEDS ORDERED: MUPI30CR TOP (18:02)
[2025-03-17] MEDS ORDERED: [UNRECOGNIZED DRUG - CODE] TOP (18:02)
[2025-03-17] MEDS ORDERED: ALBU2.5V10 INH (18:02)
[2025-03-17] MEDS ORDERED: MECL-86 PO (18:02)
[2025-03-17] MEDS ORDERED: FINA-37 PO (18:02)
[2025-03-17] MEDS ORDERED: TAMS1CAP17 PO (18:02)
[2025-03-17] MEDS ORDERED: DICL20GE TOP (18:02)
[2025-03-17] MEDS ORDERED: THERTAB19 PO (18:02)
[2025-03-17] MEDS ORDERED: FAMO20TA PO (18:02)
[2025-03-17] MEDS ORDERED: MELA5CAP2 PO (18:02)
[2025-03-17 18:05] LABS: BASO # 0.1 10^3/uL (0.0-0.2); BASO % 0.5 % (0.0-1.0); EOS # 0.3 10^3/uL (0.0-0.5); EOS % 2.2 % (0.0-3.0); LYMPH # 1.6 10^3/uL (1.5-5.0); LYMPH % 13.0 % (24.0-44.0); MONO # 1.0 10^3/uL (0.0-0.8); MONO % 8.3 % (2.0-8.0); NEUTROPHILS # 9.1 10^3/uL (1.5-8.5); NEUTROPHILS % 75.5 % (36.0-66.0); PLATELET COUNT, AUTOMATED 200 10^3/uL (150-450)
[2025-03-17] MEDS ORDERED: HOME MED LIST COMPLETE! XX SCH (18:05)
[2025-03-17 18:30] LABS: ALT/SGPT 11 U/L (7.0-40); AST/SGOT 23 U/L (<34); CALCIUM LEVEL 9.4 MG/DL (8.3-10.6); CARBON DIOXIDE LEVEL 27 MMOL/L (20-31); CHLORIDE LEVEL 102 MMOL/L (98-107); CK-MB VALUE MASS 1.8 NG/ML (<3.6); CREATININE FOR GFR 0.83 MG/DL (0.70-1.30); GLOMERULAR FILTRATION RATE > 90.0 (>49); POTASSIUM SERUM 4.6 MMOL/L (3.5-5.1); SODIUM LEVEL 138 MMOL/L (136-145)
[2025-03-17 18:32] LABS: FREE T4 1.29 NG/DL (0.89-1.76)
[2025-03-17 18:35] LABS: CPK CREATINE PHOSPHOKINASE 201 U/L (46-171); MB/CK RELATIVE INDEX 0.89 (< OR =4)
[2025-03-17 20:08] LABS: CK-MB VALUE MASS 1.5 NG/ML (<3.6); CPK CREATINE PHOSPHOKINASE 236 U/L (46-171); MB/CK RELATIVE INDEX 0.63 (< OR =4)
[2025-03-17 20:30] VITALS: BP 142/85; O2SAT 96
== END 2025-03-17 20:56 | disposition home or self-care (01) ==
LOC: M ED 15:42 → EDBD 15:42 → M ED 20:56
DX: I67.82 Cerebral ischemia (principal); V48.4XXA Person boarding or alighting a car injured in noncollision transport accident, initial encounter; I25.2 Old myocardial infarction; K21.9 Gastro-esophageal reflux disease without esophagitis; I10 Essential (primary) hypertension; F17.210 Nicotine dependence, cigarettes, uncomplicated; F10.10 Alcohol abuse, uncomplicated; Z88.0 Allergy status to penicillin; Z79.1 Long term (current) use of non-steroidal anti-inflammatories (NSAID); Z79.51 Long term (current) use of inhaled steroids; Z79.899 Other long term (current) drug therapy; Z79.810 Long term (current) use of selective estrogen receptor modulators (SERMs)